=== PATIENT | male | born 1945 | race Caucasian/White ===

== ENCOUNTER → 2018-05-08 03:11 | Outpatient (CLI) | payer OTHER, SELFPAY ==
[2018-05-08 11:34] LABS: Cholesterol 137 mg/dL (50-200); HDL Cholesterol 57 mg/dL (40-60); LDL CHOLESTEROL 75 mg/dL (<100); Triglyceride 63 mg/dL (30-150)
[2018-05-09 10:11] LABS: PSA, Screening 2.1 ng/ml (0-6.5)
== END ==
PROVIDERS: PCP Family Medicine; Visit Provider Family Medicine
DX: Z00.00 Encounter for general adult medical examination without abnormal findings (principal)
CPT/HCPCS: 36415; 80061; 83721; 84153

== ENCOUNTER 2018-11-11 12:42 | Outpatient (CLI) | payer OTHER, SELFPAY ==
[2018-11-12 09:26] LABS: PSA, Screening 1.6 ng/ml (0-6.5)
== END 2018-11-11 13:02 ==
PROVIDERS: PCP Family Medicine; Visit Provider Nurse Practitioner Gerontology
DX: R97.20 Elevated prostate specific antigen [PSA] (principal); Z12.5 Encounter for screening for malignant neoplasm of prostate
CPT/HCPCS: 36415; 84153

== ENCOUNTER 2019-05-06 11:51 | Outpatient (CLI) | payer OTHER, SELFPAY ==
[2019-05-06 13:31] LABS: Calculated LDL 76 mg/dL; Cholesterol 153 mg/dL (50-200); HDL Cholesterol 57 mg/dL (40-60); Triglyceride 103 mg/dL (30-150)
[2019-05-07 09:24] LABS: PSA, Screening 1.8 ng/ml (0-6.5)
== END 2019-05-06 12:11 ==
PROVIDERS: PCP Family Medicine; Visit Provider Family Medicine
DX: E78.5 Hyperlipidemia, unspecified (principal); Z12.5 Encounter for screening for malignant neoplasm of prostate
CPT/HCPCS: 36415; 80061; 83721; 84153

== ENCOUNTER 2020-05-07 13:05 | Outpatient (REF) | payer OTHER, SELFPAY ==
[2020-05-07 21:22] LABS: Calculated LDL 95 mg/dL (<100); Cholesterol 170 mg/dL (<200); Glucose 103 mg/dL (74-106); HDL Cholesterol 57 mg/dL (40-60); Triglyceride 90 mg/dL (<150)
[2020-05-10 09:06] LABS: PSA, Screening 1.8 ng/mL (0.0-6.5)
== END 2020-05-07 13:25 ==
LOC: LBN 13:05
PROVIDERS: PCP Family Medicine; Visit Provider Family Medicine
DX: E78.5 Hyperlipidemia, unspecified (principal); R73.9 Hyperglycemia, unspecified; Z12.5 Encounter for screening for malignant neoplasm of prostate
CPT/HCPCS: 80061; 82947; 84153

== ENCOUNTER 2022-03-17 07:46 | Day surgery (SDC) | payer OTHER, SELFPAY ==
--- NOTE | 2022-03-16 22:04 | W.COLOREPORT ---
Colonoscopy Report Date of procedure: 03/17/22 Pre-op diagnosis general: A. polyps Post-op diagnosis procedure note: other (I/E hemorrhoids and polyps) Surgeon: Natacha Workman Anesthesia Type: General:No Airway Estimated blood loss (mL): 1 Pathology: other Complications: None Disposition: same day Prep: Miralax/Dulcolax Retraction Time: 10 Procedure Description: After informed consent was obtained the patient was taken to the procedure room and placed in a left decubitous position. Monitors were applied and a time out was done. The patients name, date of , procedure, allergies to medications and metal in their body was reviewed. The patient was then sedated. Once sedated and comfortable a rectal exam was done. External hemorrhoids. Internal exam revealed a normal sphincter tone and no palpable masses. The scope was then introduced and retrofelexed. Grade 1 internal hemorrhoids were identified. The scope was then advanced to the cecum without difficulty. The TI and appendiceal orifice were identified. The prep was a BB PS 3 for a total of 9.. The scope was then slowly retracted over 10 minutes back into the rectum. There are no diverticula visualized today. The mucosa is pink and healthy. There are x2 5 mm, flat adenomas at 60 cm. These are removed with a cold biting forcep. All specimen is retrieved and no bleeding is noted. The scope was removed and the patient was woken up and taken back to Same day surgery in stable condition. The patient tolerated the procedure well and there were no immediate complications. Follow up: The patient should follow up in 5 years unless they develop changes in bowel habits or other new gastrointestinal complaints.
--- NOTE | 2022-03-16 22:06 | PDOC.DSDIS_ITS ---
Discharge Plan Disposition Patient Disposition: HOME Condition: Good Discharge Details Reason For Visit: colon scope Attending Provider: Natacha Workman Primary Care Provider: Chava Arora Home Meds and New Rx's Prescriptions: Continued tamsulosin 0.4 mg capsule 0.4 mg PO DAILY Qty: 90 3RF atorvastatin 10 mg tablet 10 mg PO QPM Qty: 90 3RF ibuprofen [Advil Liqui-Gel] 200 MG capsule 200 - 400 mg PO PRN aspirin 81 MG tablet,chewable 81 mg PO DAILY multivitamin 1 EACH capsule 1 ea PO DAILY Discontinued bisacodyl [Dulcolax (bisacodyl)] 5 mg tablet,delayed release (DR/EC) 5 mg PO ONCE Qty: 4 0RF Rx Instructions: Take according to provider's instructions for colonoscopy prep. polyethylene glycol 3350 17 gram/dose powder 17 g PO ONCE Qty: 238 0RF Rx Instructions: To be taken as directed by prescriber's office for colonoscopy prep. Discharge Instructions Instructions: Colorectal Polyps (GEN) Additional Instructions: DSU Colonoscopy Post- Op Instructions Instructions for Everyone who is given Anesthesia: For your safety, please do the following for the next twenty-four (24) hours: *Do Not operate a motor vehicle (car, truck, motorcycle, etc.) *Do Not drink alcoholic beverages or use any recreational drugs for the first 24 hours or while taking pain medications. The medications in your body may have a reaction that can be dangerous. *Do Not make any important decisions or sign any important papers. Findings: x2 polyps Follow up: My office will send a letter in 2 to 3 weeks time detailing as to what type of polyps they are, and when we want you to repeat the colonoscopy, most likely 5 years time. 1. No lifting over 20 pounds or strenuous activity for the first 24 hours after your procedure. After 24 hours there are no restrictions on your activity but you may feel fatigued for a few days. 2. After you arrive home you may have a light meal and return to your normal diet as you can tolerate it without feeling sick to your stomach. 3. You may have a bloated, gaseous feeling in your belly (abdomen) after a colonoscopy. Passing gas and belching will help. Walking or lying down on your left side with your knees flexed may relieve the discomfort. Call the office at [phone] (Office) or [phone] (Hospital) right away if you notice any of the following: a.Vomiting of blood or ?coffee ground stools?. b.Rectal bleeding 1Tbsp, blood clots or continuous bleeding. c.Severe belly (abdominal) pain. d.A hard distended belly (abdomen) and an inability to pass gas. 4. Please don?t expect to have a normal BM (bowel movement) for 2-3 days after your procedure. 5. If there are questions regarding the findings of your procedure, please contact your doctor 6. If you are unable to contact your doctor with a problem, contact the hospital at [phone]. 7. Continue all your regular medications unless directed otherwise. I understand the above instructions and have no questions. Signature of Patient or Adult Escort Name of Responsible Adult Escort Signature of Nurse Date/Time Activity:: see above Diet:: see above Discharge Orders Discharge Orders: Discharge Order (Routine); Ordered 03/16/22 Ordered By: Natacha Workman DS: Diagnosis Discharge Diagnosis (1) Tubular adenoma: Status: Acute
[2022-03-17 08:21] VITALS: BP 130/78; PULSE 56; RESP 18; TEMP 36; O2SAT 96
[2022-03-17] MEDS: Lactated Ringers 1,000 ML 80 ML IV (08:44)
--- NOTE | 2022-03-17 10:23 | W.ANESPRE ---
General Info Date of Service Date Performed: 03/17/22 Height: 5 ft 10 in Weight: 88.7 kg Body Mass Index (BMI): 28.0 Surgical Procedure: Operation Date: 03/17/22 09:20 Proposed Procedure Side Surgeon gavin Workman, DO Meds Allergies and Home Medications Allergies Allergy/AdvReac Type Severity Reaction Status Date / Time No Known Allergies Allergy Verified 03/15/22 14:20 Home Medication Medication Instructions Recorded aspirin 81 mg chewable tablet 81 mg PO DAILY 11/08/12 ibuprofen 200 mg capsule (Advil 200 - 400 mg PO PRN 11/08/12 Liqui-Gel) multivitamin 1 ea PO DAILY 11/08/12 atorvastatin 10 mg tablet 10 mg PO QPM #90 tabs 05/11/21 tamsulosin 0.4 mg capsule 0.4 mg PO DAILY #90 caps 05/11/21 Current Visit Medications: Current Medications Generic Name Dose Route Start Last Admin Trade Name Freq PRN Reason Stop Dose Admin Hyoscyamine Sulfate 0.125 mg 03/16/22 22:03 Hyoscyamine 0.125 Mg Sl/Oral/Chew SL DIRECTED PRN Ringer's Solution 1,000 mls @ 80 mls/hr 03/17/22 06:00 03/17/22 08:44 IV 04/15/22 23:59 80 mls/hr INFUSION ODETTE Administration IV Miscellaneous Supplies 1 each 03/17/22 06:00 Iv Access IV 04/15/22 23:59 DIRECTED ODETTE Ondansetron HCl 4 mg 03/16/22 22:03 Ondansetron 4 Mg/2 Ml Vial IVP Q4H PRN PRN Nausea / Vomiting Sodium Chloride 0 ml 03/17/22 06:00 Normal Saline Flush 10 Ml Syr IV 04/15/22 23:59 PRN PRN Sodium Chloride 0 ml 03/17/22 06:00 Normal Saline 10 Ml Vial IJ 04/15/22 23:59 DIRECTED PRN Sterile Water 0 ml 03/17/22 06:00 Water,Injection,Sterile 10 Ml Vial IJ 04/15/22 23:59 DIRECTED PRN PFSH Active Problems Active Problems: Problem Status Onset Code Tubular adenoma D36.9 Polyp of colon 11/11/12 K63.5 Screening for colon cancer Z12.11 Hard of hearing H91.90 Medical History Medical History BPH (benign prostatic hyperplasia) Dysfunction of both eustachian tubes (04/16/18) Family history of prostate cancer (03/11/14) High cholesterol Hyperlipidemia with target LDL less than 100 Knee pain, right anterior Sensorineural hearing loss, bilateral (04/16/18) Tobacco Smoking/Tobacco Use Status: Never Passive smoking exposure: Yes Second hand exposure: Yes Alcohol Alcohol Intake: current Alcohol intake frequency: a few times a week Alcohol type: beer and wine Substance Use Substance use: Never Substance use type: does not use Vital Signs and Lab Results Vital Signs Most Recent Vital Signs in EMR: Most Recent Vital Signs Temp Pulse Resp BP Pulse Ox 36 C L 56 L 18 130/78 96 03/17/22 08:21 03/17/22 08:21 03/17/22 08:21 03/17/22 08:21 03/17/22 08:21 Lab Results Blood Type / Crossmatch: No Data to Display Complete Blood Count: No Data to Display Complete Metabolic Panel: No Data to Display Liver Function Panel: No Data to Display Coagulation Panel: No Data to Display Cardiac Panel: No Data to Display Arterial Blood Gas: No Data to Display Venous Blood Gas: No Data to Display Pancreas Panel: No Data to Display Thyroid Panel: No Data to Display Infectious Disease: No Data to Display Blood Cultures: No Data to Display Toxicology Panel: No Data to Display Anesthesia Assessment and Plan Anesthesia History Personal History: No History of Anesthesia Complications Family History: No Family History of Anesthesia Complications Exercise Tolerance Exercise Tolerance: Metabolic Equivalents>4 Pertinent Negatives Pertinent Negatives: No Symptoms of GERD, No Major Cardiovascular Symptoms or Complaints, No Major Pulmonary Symptoms or Complaints and No History of CVA/TIA Cardiac & Pulmonary Exam Cardiac Exam: Normal S1/S2 Heart Sounds Pulmonary Exam: Clear Bilateral Breath Sounds Implantable Cardiac Device Does patient have a Pacemaker or an ICD?: No Airway Exam Known Difficult Airway: No Mallampati Class: 2 Mouth Opening: Normal (> 3cm) Thyromental Distance: Greater than 3 cm Neck Range of Motion: Full ROM Neck Circumference: Normal Teeth Condition: Normal Dentition Airway Comments: Crowns and implants ASA Classification ASA Score: ASA 2 Emergency Case?: No NPO Status NPO Status: NPO Clears >2 hours, Solids >8 hours Anesthesia Plan Resuscitation Status: Full Code Anesthesia Technique: General Anesthesia Airway Planned: Natural Airway Monitors Used: Standard Monitors
[2022-03-17 10:26] VITALS: BMI 28.0
--- NOTE | 2022-03-17 10:55 | BOWEL_PTH ---
PATIENT: Dany August LOC: [facility] U#:[id number] AGE/SX: 77/M ROOM: RE03/17/[address]: Natacha Workman : 1945 BED: DIS: 03/17/2022 SPEC #: [id number] RECD: 03/17/22 11:42 STATUS: CHEMO REQ #: [id number] PALMER: 03/17/22 10:[address]: Natacha Workman DEPT: Surgical Specimen RECD BY: Rebeka Villatoro ENTERED: 03/17/22 11:43 SP TYPE: Bowel OTHR DR: Chava Arora MD Tissues: 1 - BIOPSY BOWEL Procedures: GROSS AND MICRO LEVEL 4 Comments: [id number]
[2022-03-17 11:04] VITALS: BP 119/78; PULSE 59; RESP 16; TEMP 36; O2SAT 98
--- NOTE | 2022-03-17 11:04 | W.ANESPOSTOP ---
Postoperative Evaluation Date, Time and Location Date Performed: 03/17/22 Time Performed: 11:04 Patient Location: Day Surgery Unit Vital Signs Most Recent Imported Vital Signs: Most Recent Vital Signs Temp Pulse Resp BP Pulse Ox 36 C L 56 L 18 130/78 96 03/17/22 08:21 03/17/22 08:21 03/17/22 08:21 03/17/22 08:21 03/17/22 08:21 Most Recent Manually Entered Vital Signs: Adult Blood Pressure: 119/78 Heart Rate: 59 Respirations: 16 Oxygen Saturation (%): 98 Temperature (C): 36.5 C Pain Score (0-10 Scale): 0 Pain Score Most Recent Pain Score: Most Recent Pain Score Pain Level 0 03/17/22 08:21 Assessment Mental Status: Awake (Alert & Oriented to Patient Baseline) Airway and Respiratory Function: Patent airway with normal (patient baseline) respiratory exam Cardiovascular Function: Hemodynamically Stable Hydration Status: Adequately Hydrated Nausea & Vomiting: No Nausea or Vomiting Pain: Pt. Denies Any Pain Peripheral Nerve Block: Patient did not receive a nerve block
[2022-03-17 11:05] VITALS: BP 119/78; PULSE 59; RESP 16; TEMPC 36.5; O2SAT 98
[2022-03-17 11:32] VITALS: BP 133/86; PULSE 61; RESP 16; TEMP 36; O2SAT 98
== END 2022-03-17 12:22 | disposition home or self-care (01) ==
PROVIDERS: PCP Family Medicine; Visit Provider Surgery
PROC: 0DJD8ZZ Inspection of Lower Intestinal Tract, Via Natural or Artificial Opening Endoscopic (ICD-10-PCS; CPT 45378; principal; 2022-03-17 09:15)
DX: Z86.010 Personal history of colon polyps (principal); K63.5 Polyp of colon; K64.0 First degree hemorrhoids; K63.89 Other specified diseases of intestine
CPT/HCPCS: 45380; 88305

== ENCOUNTER 2022-05-22 03:43 | Outpatient (CLI) | payer OTHER, SELFPAY ==
[2022-05-22 12:33] LABS: Calculated LDL 80 mg/dL (<100); Cholesterol 148 mg/dL (<200); HDL Cholesterol 58 mg/dL (40-60); Triglyceride 54 mg/dL (<150)
[2022-05-22 22:36] LABS: PSA, Screening 3.3 ng/mL (<=6.5)
== END 2022-05-22 03:44 | disposition home or self-care (01) ==
LOC: LOS 03:43
PROVIDERS: PCP Family Medicine; Visit Provider Family Medicine
DX: E78.5 Hyperlipidemia, unspecified (principal); Z12.5 Encounter for screening for malignant neoplasm of prostate
CPT/HCPCS: 36415; 80061; 84153

== ENCOUNTER 2023-05-18 10:25 | Outpatient (CLI) | payer MEDICARE, SELFPAY ==
[2023-05-18 09:31] LABS: HCT 47.1 % (40.0-50.0); HGB 16.2 g/dL (13.5-17.5); MCH 31.3 pg (27.0-33.0); MCHC 34.4 % (32.0-36.0); MCV 91 fL (80-95); MPV 9.1 fL (8.0-11.0); Platelet Count 169 10^3/uL (130-400); RBC 5.17 10^6/uL (4.36-5.78); RDW 13.2 % (11.8-14.1); RDW-SD 44.1 fL; WBC 7.25 10^3/uL (4.4-10.8)
[2023-05-18 10:22] LABS: Anion Gap 8.6 mmol/L (3-11); BUN 16 mg/dL (7-18); CO2 25.4 mmol/L (21.0-32.0); CREATININE 1.1 mg/dL (0.70-1.30); Calcium 8.8 mg/dL (8.5-10.1); Calculated LDL 83 mg/dL (<100); Chloride 105 mmol/L (98-107); Cholesterol 158 mg/dL (<200); Estimated GFR 69.57 (mL/min/1.73m2); Glucose 111 mg/dL (74-106); HDL Cholesterol 63 mg/dL (40-60); Potassium 4.1 mmol/L (3.5-5.1); Sodium 139 mmol/L (136-145); Triglyceride 64 mg/dL (<150)
[2023-05-18 18:07] LABS: PSA, Screening 3.6 ng/mL (<=6.5)
== END 2023-05-18 10:26 | disposition home or self-care (01) ==
LOC: LBO 10:26
PROVIDERS: PCP Family Medicine; Visit Provider Nurse Practitioner Family
DX: E78.00 Pure hypercholesterolemia, unspecified (principal); N40.0 Benign prostatic hyperplasia without lower urinary tract symptoms; Z00.00 Encounter for general adult medical examination without abnormal findings; Z80.42 Family history of malignant neoplasm of prostate; E78.5 Hyperlipidemia, unspecified; M79.604 Pain in right leg; R97.20 Elevated prostate specific antigen [PSA]
CPT/HCPCS: 36415; 80048; 80061; 84153; 85027

== ENCOUNTER → 2023-05-18 14:08 | Outpatient (CLI) | payer MEDICARE, SELFPAY ==
--- NOTE | 2023-05-18 14:00 | DI.US_ITS ---
Exam(s) US LOWER EXTREMITY VENOUS LT EXAM: US LOWER EXTREMITY VENOUS LT CLINICAL HISTORY: calf pain,swelling,M79.89,? dvt TECHNIQUE: Left lower extremity venous ultrasound performed using grayscale, color-flow, and spectra l Doppler analysis. COMPARISON: No exams were available for comparison FINDINGS: The left common femoral, femoral and popliteal veins demonstrate normal compressibility, augmentation , and color Doppler. The posterior tibial and peroneal veins are patent. The saphenofemoral junction is unremarkable. There is no evidence of a Jiménez cyst. The soft tissues are unremarkable. IMPRESSION: No evidence of a left lower extremity DVT. DATA REPOSITORY:
== END ==
PROVIDERS: PCP Family Medicine; Visit Provider Nurse Practitioner Family
DX: R22.42 Localized swelling, mass and lump, left lower limb (principal)
CPT/HCPCS: 36415; 80048; 80061; 84153; 85027; 93971

== ENCOUNTER → 2023-11-08 10:49 | Outpatient (CLI) | payer MEDICARE, SELFPAY ==
--- NOTE | 2023-11-08 10:45 | DI.RAD_ITS ---
Exam(s) XR KNEE RT 3V AP,LAT,CHAD EXAM: XR KNEE RT 3V AP,LAT,CHAD CLINICAL HISTORY: ongoing medial rt knee pain,s/p fall from ladder,m25.561. TECHNIQUE: 2D digital imaging was performed of the right knee. Three views obtained. AP, lateral an d PA tunnel views were obtained. COMPARISON: There are no priors for comparison. FINDINGS: BONES: No acute fracture is present. No bony destructive lesion is seen. JOINTS: There is mild narrowing of the medial femoral tibial joint. There is a small joint effusion. There is a small density anterior to the proximal tibia seen on the lateral view which may represen t a loose body. SOFT TISSUE: Normal. IMPRESSION: 1. No acute or healing fracture or dislocation. 2. Small joint effusion. 3. There is a tiny density anterior to the proximal tibia which may represent a loose body. DATA REPOSITORY: RADIATION DOSE DELIVERED:
== END ==
PROVIDERS: PCP Family Medicine; Visit Provider Family Medicine
DX: M25.561 Pain in right knee (principal)
CPT/HCPCS: 73562

== ENCOUNTER → 2023-11-23 09:28 | Outpatient (BNVA) | payer MEDICARE, SELFPAY | PROVIDERS: PCP Family Medicine; Referring Provider Family Medicine | DX: M17.11 Unilateral primary osteoarthritis, right knee (principal); W11.XXXA Fall on and from ladder, initial encounter | CPT/HCPCS: 20610; 99213; J1040 ==

== ENCOUNTER 2024-05-29 11:42 | Outpatient (CLI) | payer MEDICARE, SELFPAY ==
[2024-05-29 11:43] LABS: Anion Gap 7.1 mmol/L (3-11); BUN 18 mg/dL (7-18); CO2 28.9 mmol/L (21.0-32.0); CREATININE 1.2 mg/dL (0.70-1.30); Chloride 102 mmol/L (98-107); Estimated GFR 62.29 (mL/min/1.73m2); Glucose 102 mg/dL (74-106); Potassium 4.2 mmol/L (3.5-5.1); Sodium 138 mmol/L (136-145)
[2024-05-29 21:02] LABS: PSA, Screening 3.9 ng/mL (<=6.5)
== END 2024-05-29 11:43 | disposition home or self-care (01) ==
LOC: LBO 11:43
PROVIDERS: PCP Family Medicine; Visit Provider Nurse Practitioner Family
DX: Z00.00 Encounter for general adult medical examination without abnormal findings (principal); D36.9 Benign neoplasm, unspecified site; E78.00 Pure hypercholesterolemia, unspecified; Z80.42 Family history of malignant neoplasm of prostate; N40.0 Benign prostatic hyperplasia without lower urinary tract symptoms; Z12.5 Encounter for screening for malignant neoplasm of prostate
CPT/HCPCS: 36415; 80048; 84153

== ENCOUNTER 2025-06-23 11:00 | Outpatient (CLI) | payer MEDICARE, SELFPAY ==
[2025-06-23 12:21] LABS: HCT 48.6 % (40.0-50.0); HGB 16.7 g/dL (13.5-17.5); MCH 31.7 pg (27.0-33.0); MCHC 34.4 % (32.0-36.0); MCV 92 fL (80-95); MPV 9.7 fL (8.0-11.0); Platelet Count 189 10^3/uL (130-400); RBC 5.27 10^6/uL (4.36-5.78); RDW 13.3 % (11.8-14.1); RDW-SD 45.4 fL; WBC 7.05 10^3/uL (4.4-10.8)
[2025-06-23 12:31] LABS: Anion Gap 10.0 mmol/L (3-11); BUN 16 mg/dL (7-18); CO2 29.0 mmol/L (21.0-32.0); Calcium 9.3 mg/dL (8.5-10.1); Chloride 101 mmol/L (98-107); Estimated GFR 68.71 (mL/min/1.73m2); Glucose 106 mg/dL (74-106); Potassium 4.1 mmol/L (3.5-5.1); Sodium 140 mmol/L (136-145)
[2025-06-23 20:03] LABS: PSA, Screening 5.7 ng/mL (<=6.5)
== END 2025-06-23 11:01 | disposition home or self-care (01) ==
LOC: LOS 11:01
PROVIDERS: PCP Family Medicine; Visit Provider Family Medicine
DX: Z12.5 Encounter for screening for malignant neoplasm of prostate (principal); E87.1 Hypo-osmolality and hyponatremia; R53.83 Other fatigue
CPT/HCPCS: 36415; 80048; 84153; 85027